=== PATIENT | female | born 1965 | race Caucasian/White ===

== ENCOUNTER 2017-02-27 16:58 | Emergency (ER) | payer SELFPAY ==
[2017-02-27] MEDS ORDERED: LORazepam 2 MG/ML MDV IVPUSH ONE (17:10)
--- NOTE | 2017-02-27 17:15 | EDM.PDOC ---
<Wojciech Arndt Mary Ann - Last Filed: 02/27/17 19:18> ED HPI GENERAL MEDICAL PROBLEM - General Chief Complaint: Respiratory Problem Stated Complaint: SOB Time Seen by Provider: 02/27/17 17:10 Source of Information: Reports: Patient, Family (daughter) History Limitations: Reports: No Limitations - History of Present Illness INITIAL COMMENTS - FREE TEXT/NARRATIVE: 51-year-old female who attends the ED primarily due to dyspnea. She reports that she started to feel unwell briefly before leaving home which isn't done center. She was traveling with her daughter by a vehicle here to do some grocery shopping and some other business. Over time she's developed increasing troubles getting her breath. On examination the ED her sats are 100% but she is hyperventilating with numbness and tingling in her face and hands. Lungs are clear to auscultation and heart was sinus tachycardia at 1 30/m. This is a panic attack or anxiety attack. She repeats reports a similar type episode about 2 weeks ago but by the time schedule hospital things had improved and she never came in for evaluation. This never happened to her before otherwise. She takes no stimulants and does not drink much for alcohol. Has no known troubles with her thyroid gland. Denies any chest pain. Just well aware that she can get a decent breath. Onset: Today Onset Date: 02/27/17 Onset Time: 16:05 Duration: Minutes:, Constant, Getting Worse Location: Reports: Generalized (Sense of weakness numbness tingling upper extremities and per orally lightheaded dizziness. Short of breath.) Quality: Reports: Other Severity: Severe (No chest pain.) Improves with: Reports: None Worsens with: Reports: None Context: Reports: Other. Denies: Activity, Exercise, Lifting, Sick Contact, Trauma Associated Symptoms: Reports: Shortness of Breath, Weakness. Denies: Cough, cough w sputum, Diaphoresis (Was traveling in the motor vehicle when symptoms developed. 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 02/27/17 [History] Potassium Chloride [Klor-Con M20] 20 meq PO BID #4 tab.er 02/27/17 [Rx] Social & Family History - Living Situation & Occupation Living situation: Reports: ED ROS GENERAL - Review of Systems Review Of Systems: See Below Constitutional: Reports: Weakness. Denies: Fever, Chills, Malaise, Fatigue, Night Sweats, Diaphoresis, Decreased Appetite, Weight Loss, Weight Gain HEENT: Reports: No Symptoms Respiratory: Reports: Shortness of Breath. Denies: Wheezing, Pleuritic Chest Pain, Cough, Sputum, Hemoptysis Cardiovascular: Denies: No Symptoms, Chest Pain, Blood Pressure Problem, Claudication, Dyspnea on Exertion, Edema, Lightheadedness, Orthopnea, Palpitations, PND, Syncope, Other Endocrine: Reports: No Symptoms GI/Abdominal: Reports: No Symptoms : Reports: No Symptoms Musculoskeletal: Reports: No Symptoms Skin: Reports: No Symptoms Neurological: Reports: Confusion, Dizziness, Numbness, Tingling (Both upper extremities and periorally.), Difficulty Walking (Generalized weakness), Weakness. Denies: Headache, Pre-Existing Deficit, Seizure, Syncope, Tremors, Trouble Speaking (the weakness), Change in Speech, Gait Disturbance, Other Psychiatric: Reports: Other (She does not recognize anxiety per se but recognizes a good deal of stress in her current living situation.) Hematologic/Lymphatic: Reports: No Symptoms Immunologic: Reports: No Symptoms ED EXAM, GENERAL - Physical Exam Exam: See Below Exam Limited By: No Limitations General Appearance: Alert, Moderate Distress (Hyperventilation syndrome.) Eye Exam: Bilateral Eye: Normal Inspection, PERRL Ear Exam: Right Ear: Canal Normal Neck: Normal Inspection, Supple, Non-Tender, Full Range of Motion. No: Lymphadenopathy (L), Lymphadenopathy (R) Respiratory/Chest: Lungs Clear (Marked tachypnea at rest.), No Accessory Muscle Use, Chest Non-Tender, Respiratory Distress. No: Decreased Breath Sounds, Crackles, Rales, Rhonchi, Wheezing Cardiovascular: No Edema (Resting tachycardia of 1 30/m), No Gallop, No Murmur, No Rub, Tachycardia Peripheral Pulses: 3+: Carotid (L), Carotid (R), Posterior Tibial (L), Posterior Tibial (R), Dorsalis Pedis (L), Dorsalis Pedis (R) GI/Abdominal: Normal Bowel Sounds, Soft, Non-Tender, No Organomegaly, No Distention Back Exam: Normal Inspection, Full Range of Motion. No: CVA Tenderness (L), CVA Tenderness (R) Extremities: Normal Inspection, Normal Range of Motion, Non-Tender, No Pedal Edema, Normal Capillary Refill Neurological: Alert, Oriented, CN II-XII Intact, Normal Cognition, No Motor/ Sensory Deficits Psychiatric: Anxious Skin Exam: Warm, Dry, Intact, Normal Color, No Rash EKG INTERPRETATION EKG Date: 02/27/17 Time: 17:20 Rhythm: other (Sinus tachycardia) Rate (beats/min): 110 Mary Alice: LAD-left axis deviation (Mild at -16) P-wave: present QRS: normal ST-T: normal QT: normal Course - Vital Signs Last Recorded V/S: Last Vital Signs Temp 36.0 C 02/27/17 17:31 Pulse 130 H 02/27/17 17:31 Resp 36 H 02/27/17 17:31 BP 170/87 H 02/27/17 17:31 Pulse Ox 100 02/27/17 17:31 - Orders/Labs/Meds Orders: Active Orders 24 hr Category Date Time Status EKG Documentation Completion [RC] STAT Care 02/27/17 17:11 Active Ang Chest [CT] Stat Exams 02/27/17 21:02 Taken Chest 1V Frontal [CR] Stat Exams 02/27/17 17:11 Taken Sodium Chloride 0.9% [Normal Saline] 100 ml Med 02/27/17 22:15 Active IV ASDIRECTED Sodium Chloride 0.9% [Saline Flush] Med 02/27/17 17:10 Active 10 ml FLUSH ASDIRECTED PRN Saline Lock Insert [OM.PC] Routine Oth 02/27/17 17:10 Ordered Medication Orders Sodium Chloride (Normal Saline) 100 mls @ 75 mls/hr IV ASDIRECTED EUGENIO Sodium Chloride (Saline Flush) 10 ml FLUSH ASDIRECTED PRN PRN Reason: Keep Vein Open Last Admin: 02/27/17 17:25 Dose: 10 ml Labs: Laboratory Tests 02/27/17 02/27/17 02/27/17 Range/Units 17:10 17:10 17:10 WBC 6.73 (3.98-10.04) K/mm3 RBC 4.22 (3.98-5.22) M/mm3 Hgb 12.9 (11.2-15.7) gm/L Hct 38.5 (34.1-44.9) % MCV 91.2 (79.4-94.8) fl MCH 30.6 (25.6-32.2) pg MCHC 33.5 (32.2-35.5) g/dl RDW Std Deviation 44.4 (36.4-46.3) fL Plt Count 317 (182-369) K/mm3 MPV 9.6 (9.4-12.3) fl Neutrophils % (Manual) 78 H (40-60) % Band Neutrophils % 0 (0-10) % Lymphocytes % (Manual) 18 L (20-40) % Atypical Lymphs % 0 % Monocytes % (Manual) 4 (2-10) % Eosinophils % (Manual) 0 L (0.7-5.8) % Basophils % (Manual) 0 L (0.1-1.2) Platelet Estimate Adequate RBC Morph Comment Normal D-Dimer, Quantitative 1.09 H (0.19-0.59) mg/L Sodium 141 (136-145) mEq/L Potassium 3.3 L (3.5-5.1) mEq/L Chloride 102 (98-107) mEq/L Carbon Dioxide 19 L (21-32) mEq/L Anion Gap 23.3 H (5-15) BUN 12 (7-18) mg/dL Creatinine 1.0 (0.55-1.02) mg/dL Est Cr Clr Drug Dosing TNP Estimated GFR (MDRD) 59 (>60) mL/min BUN/Creatinine Ratio 12.0 L (14-18) Glucose 165 H (74-106) mg/dL Calcium 10.0 (8.5-10.1) mg/dL Magnesium 1.6 L (1.8-2.4) mg/dl Total Bilirubin 0.5 (0.2-1.0) mg/dL AST 32 (15-37) U/L ALT 30 (14-59) U/L Alkaline Phosphatase 78 (46-116) U/L Total Protein 8.9 H (6.4-8.2) g/dl Albumin 4.8 (3.4-5.0) g/dl Globulin 4.1 gm/dL Albumin/Globulin Ratio 1.2 (1-2) TSH 3rd Generation 1.884 (0.358-3.74) uIU/mL Urine Opiates Screen (NEGATIVE) Ur Buprenorphine Scrn (NEGATIVE) Ur Oxycodone Screen (NEGATIVE) Urine Methadone Screen (NEGATIVE) Ur Propoxyphene Screen (NEGATIVE) Ur Barbiturates Screen (NEGATIVE) Ur Tricyclics Screen (NEGATIVE) Ur Phencyclidine Scrn (NEGATIVE) Ur Amphetamine Screen (NEGATIVE) U Methamphetamines Scrn (NEGATIVE) U Benzodiazepines Scrn (NEGATIVE) U Cocaine Metab Screen (NEGATIVE) U Marijuana (THC) Screen (NEGATIVE) Ketones (0.0-0.3) mM 02/27/17 02/27/17 Range/Units 17:54 19:25 WBC (3.98-10.04) K/mm3 RBC (3.98-5.22) M/mm3 Hgb (11.2-15.7) gm/L Hct (34.1-44.9) % MCV (79.4-94.8) fl MCH (25.6-32.2) pg MCHC (32.2-35.5) g/dl RDW Std Deviation (36.4-46.3) fL Plt Count (182-369) K/mm3 MPV (9.4-12.3) fl Neutrophils % (Manual) (40-60) % Band Neutrophils % (0-10) % Lymphocytes % (Manual) (20-40) % Atypical Lymphs % % Monocytes % (Manual) (2-10) % Eosinophils % (Manual) (0.7-5.8) % Basophils % (Manual) (0.1-1.2) Platelet Estimate RBC Morph Comment D-Dimer, Quantitative (0.19-0.59) mg/L Sodium (136-145) mEq/L Potassium (3.5-5.1) mEq/L Chloride (98-107) mEq/L Carbon Dioxide (21-32) mEq/L Anion Gap (5-15) BUN (7-18) mg/dL Creatinine (0.55-1.02) mg/dL Est Cr Clr Drug Dosing Estimated GFR (MDRD) (>60) mL/min BUN/Creatinine Ratio (14-18) Glucose (74-106) mg/dL Calcium (8.5-10.1) mg/dL Magnesium (1.8-2.4) mg/dl Total Bilirubin (0.2-1.0) mg/dL AST (15-37) U/L ALT (14-59) U/L Alkaline Phosphatase (46-116) U/L Total Protein (6.4-8.2) g/dl Albumin (3.4-5.0) g/dl Globulin gm/dL Albumin/Globulin Ratio (1-2) TSH 3rd Generation (0.358-3.74) uIU/mL Urine Opiates Screen Negative (NEGATIVE) Ur Buprenorphine Scrn Negative (NEGATIVE) Ur Oxycodone Screen Negative (NEGATIVE) Urine Methadone Screen Negative (NEGATIVE) Ur Propoxyphene Screen Negative (NEGATIVE) Ur Barbiturates Screen Negative (NEGATIVE) Ur Tricyclics Screen Negative (NEGATIVE) Ur Phencyclidine Scrn Negative (NEGATIVE) Ur Amphetamine Screen Negative (NEGATIVE) U Methamphetamines Scrn Negative (NEGATIVE) U Benzodiazepines Scrn Negative (NEGATIVE) U Cocaine Metab Screen Negative (NEGATIVE) U Marijuana (THC) Screen Negative (NEGATIVE) Ketones 0.79 (0.0-0.3) mM Meds: Medications Generic Name Dose Route Start Last Admin Trade Name Freq PRN Reason Stop Dose Admin Sodium Chloride 100 mls @ 75 mls/hr 02/27/17 22:15 Normal Saline IV ASDIRECTED EUGENIO Sodium Chloride 10 ml 02/27/17 17:10 02/27/17 17:25 Saline Flush FLUSH 10 ml ASDIRECTED PRN Administration Keep Vein Open Discontinued Medications Generic Name Dose Route Start Last Admin Trade Name Freq PRN Reason Stop Dose Admin Sodium Chloride 1,000 mls @ 999 mls/hr 02/27/17 18:29 02/27/17 18:42 Normal Saline IV 02/27/17 19:29 999 mls/hr ONETIME ONE Administration Potassium Chloride 10 meq/ 100 mls @ 100 mls/hr 02/27/17 18:33 02/27/17 18:56 Premix IV 02/27/17 19:32 100 mls/hr ONETIME ONE Administration Lactated Ringer's 1,000 mls @ 999 mls/hr 02/27/17 19:26 02/27/17 20:15 Ringers, Lactated IV 02/27/17 20:26 999 mls/hr .BOLUS ONE Administration Iopamidol 100 ml 02/27/17 22:09 Isovue-370 (76%) IVPUSH 02/27/17 22:10 ONETIME ONE Lorazepam 1 mg 02/27/17 17:10 02/27/17 17:17 Ativan IVPUSH 02/27/17 17:11 1 mg ONETIME ONE Administration - Radiology Interpretation Free Text/Narrative:: 51-year-old female presents to ED with acute onset of shortness of breath which has progressively worsened and returned to Se. She feels shaky all over she has air hungry she is able to speak. Lungs are clear to auscultation percussion heart sinus tachycardia 1 30/m she is exhibiting signs and symptoms of hyperventilation syndrome from panic attack. (Peripheral IV line. Given Ativan 1 mg IV. Labs to be obtained as well as a 1 view chest x-ray and ECG. - Re-Assessments/Exams Free Text/Narrative Re-Assessment/Exam: 02/27/17 18:31 Labs reveal a white count of 6.73 with 78% neutrophils and no bands and hemoglobin is 12.9 .Hematocrit is 38.5 .Platelets are normal ( 17,000 d-dimer is mildly elevated at 1.09 sodium 141 potassium 3.3 chloride 102 bicarbonate 19. Anion gap is 23.3. EGFR is 59. Glucose was 165 TSH is 1.884 creatinine is 1.0 [id number] meds that she's take for allergies are Claritin-D and she is taking other decongestant for her chest. It is possible that there is too much stimulant in the current medications she is taking. She does report that she was drinking a fair amount of alcohol yesterday during waiting activities. Within her normal. Outside working in the hot sun the last few days. Therefore she needs fluids to settle her metabolic acidosis down here and she will be given normal saline open and I will give her 10 mg of potassium separately as her potassium is already low at 3.3. 02/27/17 19:[address] Cannon as it is change of shift. She is to recieve a liter of L/R after the liter of N/S has been infused to correct most of her metabolic acidosis. Departure - Departure Disposition: Home, Self-Care 01 Condition: fair Clinical Impression: Acute hyperventilation syndrome, Metabolic acidosis - Discharge Information Referrals: PCP,None [Primary Care Provider] - Additional Instructions: Evaluation in the emergency room today in regards to severe hyperventialtion syndrome. This seems to have been precipitated by dehydration and accumulation of acids in your blood which we call metabolic acidosis. You were treated with IV fluids and Ativan 1mg IV. Required 2 liters of IV fluids to correct metabolic acidosis so that symtoms do not ro occur. Suggest drinking Gatorade or Powerade at least once daily and more if working out in the hot sun to prevent similar occurrence. You have been given a prescription for potassium take 1 twice daily for 2 days. Return to the emergency room with any questions or problems or worsening symptoms. - My Orders Last 24 Hours: My Active Orders 02/27/17 21:02 Ang Chest [CT] Stat 02/27/17 22:15 Sodium Chloride 0.9% [Normal Saline] 100 ml IV ASDIRECTED - Assessment/Plan Last 24 Hours: My Active Orders 02/27/17 21:02 Ang Chest [CT] Stat 02/27/17 22:15 Sodium Chloride 0.9% [Normal Saline] 100 ml IV ASDIRECTED <Boby Cannon - Last Filed: 02/27/17 22:34> Course - Re-Assessments/Exams Free Text/Narrative Re-Assessment/Exam: 02/27/17 21:05 Patient's fluids and she still little tachycardic situation reviewed d-dimer was elevated at 1.09 will follow up with the CTA. Breath sounds are clear bilaterally she has no calf or leg discomfort. 02/27/17 22:28 CTA is unrevealing, no evidence of PE. The patient has not had any leg discomfort Departure - Departure Time of Disposition: 22:29 - My Orders Last 24 Hours: My Active Orders 02/27/17 21:02 Ang Chest [CT] Stat 02/27/17 22:15 Sodium Chloride 0.9% [Normal Saline] 100 ml IV ASDIRECTED - Assessment/Plan Last 24 Hours: My Active Orders 02/27/17 21:02 Ang Chest [CT] Stat 02/27/17 22:15 Sodium Chloride 0.9% [Normal Saline] 100 ml IV ASDIRECTED
[2017-02-27] MEDS: Sodium Chloride 0.9% 10 ML Syringe FLUSH PRN (17:25)
[2017-02-27 17:34] VITALS: BP 170/87
[2017-02-27] MEDS ORDERED: Sodium Chloride 0.9% 1,000 ML IV ONE (18:29)
[2017-02-27] MEDS ORDERED: Potassium Chloride 10 MEQ in Premix Bag 1 BAG IV ONE (18:33)
[2017-02-27] MEDS ORDERED: Lactated Ringers 1,000 ML IV ONE (19:26)
[2017-02-27] MEDS ORDERED: Iopamidol 755 Mg/ML 100 ML Bottle IVPUSH ONE (22:09)
[2017-02-27] MEDS ORDERED: Sodium Chloride 0.9% 100 ML IV SCH (22:15)
[2017-02-28] MEDS: Sodium Chloride 0.9% 10 ML Syringe FLUSH PRN (00:32)
--- NOTE | 2017-02-28 09:35 | CR ---
Chest: Frontal view of the chest was obtained. Comparison: No previous chest x-ray. Heart size and mediastinum are within normal limits. Lungs are clear. Bony structures are grossly intact. Impression: 1. Nothing acute is identified on frontal chest x-ray. Diagnostic code #1
--- NOTE | 2017-02-28 09:35 | CT ---
CT chest Technique: Multiple axial sections through the chest were obtained. Study performed as a pulmonary angiogram protocol and intravenous contrast was therefore utilized. Findings: Pulmonary arteries are well-opacified. No filling defects are seen to indicate pulmonary embolism. Small portion of the visualized upper abdominal structures appear within normal limits. No pericardial thickening is seen. Mediastinum and hilar region show no adenopathy or mass. Lung window settings show no pulmonary contusion or parenchymal infiltrates. No pneumothorax or pleural effusion is seen. Bone window settings show no acute bony abnormality. Impression: 1. No findings of pulmonary embolism. 2. Other normal findings as described above. Nothing acute is seen. Diagnostic code #1 Agree with preliminary report issued by [facility] ([facility] preliminary report dictated on 02/27/17, 11:12 PM Central Time)
== END 2017-02-27 22:40 | disposition home or self-care (01) ==
LOC: JD.ED 16:58
DX: F45.8 Other somatoform disorders (principal); E87.2 Acidosis
CPT/HCPCS: 36415; 71010; 71275; 80053; 80306; 82009; 83735; 84443; 85025; 85379; 93005; 96361; 96365; 96375; 99285; J2060; J3480; J7040; J7050; J7120; 99284